=== PATIENT | male | born 1970 | race Caucasian/White ===

== ENCOUNTER 2016-11-08 21:03 | Emergency (ER) | payer MEDICARE ==
--- NOTE | ~2016-11-08 | CR72 ---
[facility] A Service [facility] RADIOLOGY TEXT RESULTS PATIENT: JENNYFER SALCIDO LOCATION: SED : 68 UNIT #: [id number] AGE: [address]: Nelson Dominguez MD SEX: M ORDER DR: [id number] [place] [id number] E MR#: [id number] Acc #: [id number] NAME: JENNYFER SALCIDO : 1970 SEX: M STUDY DATE/TIME: 11/08/2016 21:05 UNIT: SED ROOM: STUDY DESCRIPTION: CR Chest Single View Portable Attending Physician: Nelson Dominguez M.D. Ordering Physician: Nelson Dominguez M.D. Primary Care Physician: No Primary Care Physician MEDICAL IMAGING REPORT This report is preliminary unless electronic signature is present. EXAM Chest x-ray, single-view portable HISTORY Chest pain radiating into left arm. Short of air for 2 days. History of anxiety and panic attacks. Cardiac catheterization. COMMENT Single frontal portable view of the chest timed 21:05. 11/08/2016 reviewed. Comparison 03/13/2015. FINDINGS Heart size is normal. Some asymmetry in the appearance of the lungs is probably related to positioning and technique factors. No convincing evidence for acute-appearing parenchymal infiltrate acute congestive failure, pleural effusion or pneumothorax. IMPRESSION Allowing for positioning, no active disease. Dictated by... Amalia Anand M.D. THIS IS AN ELECTRONICALLY VERIFIED REPORT Amalia Anand M.D. at 11/08/2016 11:09 PM ENDY/moni TD: 11/08/2016 22:30 JOB #: [id number] [facility] A Service [facility] RADIOLOGY TEXT RESULTS PATIENT: JENNYFER SALCIDO LOCATION: SED : 68 UNIT #: [id number] AGE: [address]: Nelson Dominguez MD SEX: M ORDER DR: MEDICAL IMAGING REPORT Page 1 of 1
--- NOTE | ~2016-11-08 | EKG ---
PATIENT: JENNYFER SALCIDO UNIT #: [id number] Ventricular Rate: 93 BPM Atrial Rate: 93 BPM P-R Interval: 162 ms QRS Duration: 100 ms Q-T Interval: 332 ms QTC Calculation(Bezet): 412 ms P [place]: 64 degrees Calculated R [place]: 32 degrees Calculated T [place]: 60 degrees Diagnosis Line: Normal sinus rhythm Diagnosis Line: Incomplete right bundle branch block Diagnosis Line: Borderline ECG Diagnosis Line: When compared with ECG of 13-MAR-2015 19:04, Diagnosis Line: Fusion complexes are no longer Present Diagnosis Line: Confirmed by ISMA BARLOW MD ([id number]) on Diagnosis Line: 11/11/2016 12:03:20 PM INTERPRETING MD: YEN ALANIS
[~2016-11-08 21:03] MED LIST: ACETAMINOPHEN PO; ALBUTEROL17 G1 IH; ALBUTEROL17 GM INH; ALPRAZOLAM; ALPRAZOLAM PO; AMBIEN PO; ASPIRIN PO; ASPIRIN81 M1; ASPIRIN81 M1 PO; BENZONATATE PO; BP MED; CAPOZIDE PO; CHANTEX PO; CIPRO PO; COLACE PO; DICLOFENAC PO; DOCUSATE SODIU100 MG PO; FIORICET 50-321 EACH PO; FLAGYL PO; FLEXERIL PO; FLORINEF ACETA0.1 MG; FLORINEF ACETA0.1 MG PO; HCTZ PO; IBUPROFEN800 MG PO; KEFLEX250 M1 PO; KEPPRA100 MG/ML PO; KEPPRA500 M1; KEPPRA500 M1 PO; KEPPRA500 MG PO; KETOPROFEN PO; MAALOX SUSPENSI30 ML PO; MILK OF MAGNESIA PO; NAPROSYN500 MG PO; NEXIUM; NEXIUM PO; NORCO 5/325 TAB1 TAB PO; OMEPRAZOLE40 M1 PO; PAXIL; PAXIL PO; PAXIL40 MG PO; PERCOCET 10/3251 TAB PO; PERCOCET10 PO; PERCOCET5/325 PO; PRILOSEC PO; PRILOSEC20 MG PO; PROAIR HFA8.5 GM IH; SIMVASTATIN20 MG PO; SYMBICORT INH; SYNTHROID25 MCG PO; TRAMADOL HCL50 M1 PO; TYLENOL #3 PO; VICODIN 5/500 T1 TAB PO; VOLTAREN50 MG PO; XANAX2 MG PO; ZANTAC PO; ZITHROMAX PO; ZITHROMAX1 G/PKT PO; ZYRTEC; [UNRECOGNIZED DRUG - REMARK]
[2016-11-08 21:14] LABS: BASOPHIL# 0.1 X10e3 (0-0.3); BASOPHIL% 1.5 % (0-2.5); EOSINOPHIL# 0.7 X10e3 (0-0.7); EOSINOPHIL% 10.1 % (0.0-7.0); HEMATOCRIT 43.2 % (38.0-50.0); LYMPHOCYTE# 2.2 X10e3 (1.0-3.5); LYMPHOCYTE% 31.2 % (17.0-45.0); MEAN CELL VOLUME 95.7 FL (83-96); MEAN CORPUSCULAR HEMOGLOBIN 33.1 PG (28-34); MEAN CORPUSCULAR HGB CONC 34.6 g/dL (30-36); MEAN PLATELET VOLUME 9.7 FL (6.5-11.5); MONOCYTE# 0.6 X10e3 (0-1.0); MONOCYTE% 9.2 % (3.0-12.0); NEUTROPHIL# 3.4 X10e3 (1.5-7.1); PLATELET COUNT 198 X10e3 (140-420); RED BLOOD COUNT 4.52 X10e (3.90-5.60); RED CELL DISTRIBUTION WIDTH 13.9 % (11.0-15.5)
[2016-11-08 21:17] LABS: DIFF IND NO
[2016-11-08 21:21] LABS: INR 1.1; PROTHROMBIN TIME (PATIENT) 12.3 SECONDS (9.5-12.4)
[2016-11-08 21:28] LABS: PARTIAL THROMBOPLASTIN TIME 28.4 SECONDS (25.6-38.1)
[2016-11-08 21:30] LABS: ALBUMIN SERUM 4.5 g/dL (3.5-5.0); BILIRUBIN, DIRECT 0.2 mg/dL (0.0-0.2); BILIRUBIN,INDIRECT 0.8 mg/dL (0.0-0.9); BUN/CREATININE RATIO 7.77; CALCIUM SERUM 9.4 mg/dL (8.4-10.2); CREATININE SERUM 0.9 mg/dL (0.6-1.4); GLOM FILT RATE Estimated 101.4 mL/min (>60); POTASSIUM 5.2 mmol/L (3.5-5.1); PROTEIN TOTAL SERUM 7.3 g/dL (6.0-8.3)
[2016-11-08 21:31] LABS: POC - CKMB 4.8 ng/mL (0.0-7.9); POC - TROPONIN <0.05 ng/mL (<=0.05)
== END 2016-11-08 22:48 | disposition home or self-care (01) ==
LOC: SED 21:03
PROVIDERS: Emergency Medicine
DX: R07.9 Chest pain, unspecified (principal); F41.9 Anxiety disorder, unspecified; F17.200 Nicotine dependence, unspecified, uncomplicated
CPT/HCPCS: 36415; 71010; 80048; 80076; 82553; 84484; 85025; 85610; 85730; 93005; 96374; 99283; J2060

== ENCOUNTER 2016-11-13 12:14 | Emergency (ER) | payer MEDICARE ==
--- NOTE | ~2016-11-13 | CR72 ---
[facility]. [facility] A Service of [facility] RADIOLOGY TEXT RESULTS PATIENT: JENNYFER SALCIDO LOCATION: SED : 68 UNIT #: [id number] AGE: [address]: Adrien Fuller MD SEX: M ORDER DR: [id number] [place] [id number] E MR#: [id number] Acc #: [id number] NAME: JENNYFER SALCIDO : 1970 SEX: M STUDY DATE/TIME: 11/13/2016 12:37 UNIT: SED ROOM: STUDY DESCRIPTION: CR Chest Single View Portable Attending Physician: Adrien Fuller M.D. Ordering Physician: Adrien Fuller M.D. Primary Care Physician: Primary Care Physician No MEDICAL IMAGING REPORT This report is preliminary unless electronic signature is present. EXAM Chest portable 11/13/2016 1237 hours HISTORY 46-year-old man complaining of left chest pain for 4 days with increasing pain with inspiration. COMPARISON 11/08/2016. FINDINGS Portable upright chest demonstrates normal cardiac, mediastinal and hilar contours. The lungs are well expanded and clear. There is no pleural effusion, pneumothorax or rib lesion seen. IMPRESSION No acute cardiopulmonary findings. No change from 11/08/2016. Dictated by... Klaudia Dougherty M.D. THIS IS AN ELECTRONICALLY VERIFIED REPORT Klaudia Dougherty M.D. at 11/13/2016 2:31 PM EDURADO/julianna TD: 11/13/2016 14:06 JOB #: [id number] MEDICAL IMAGING REPORT Page 1 of 1
--- NOTE | ~2016-11-13 | EKG ---
PATIENT: JENNYFER SALCIDO UNIT #: [id number] Ventricular Rate: 73 BPM Atrial Rate: 73 BPM P-R Interval: 168 ms QRS Duration: 90 ms Q-T Interval: 366 ms QTC Calculation(Bezet): 403 ms P [place]: 67 degrees Calculated R [place]: 1 degrees Calculated T [place]: 49 degrees Diagnosis Line: Normal sinus rhythm Diagnosis Line: Normal ECG Diagnosis Line: When compared with ECG of 08-NOV-2016 20:22, Diagnosis Line: No significant change was found Diagnosis Line: Confirmed by JODY KENDALL MD ([id number]) on 11/23/2016 Diagnosis Line: 11:49:07 AM INTERPRETING MD: FAIZA ALANIS
[2016-11-13 12:37] LABS: POC - CKMB 1.6 ng/mL (0.0-7.9)
[2016-11-13 12:38] LABS: POC - TROPONIN <0.05 ng/mL (<=0.05)
[2016-11-13 12:42] LABS: INR 1.1; PROTHROMBIN TIME (PATIENT) 12.4 SECONDS (9.5-12.4)
[2016-11-13 12:45] LABS: AMPHETAMINE NEG (NEG); BARBITURATES NEG (NEG); BENZODIAZEPINES NEG (NEG); COCAINE NEG (NEG); MARIJUANA POS (NEG); OPIATES NEG (NEG); TRICYCLIC ANTIDEPRESSANTS NEG (NEG); U METHADONE NEG (NEG)
[2016-11-13 12:49] LABS: PARTIAL THROMBOPLASTIN TIME 28.5 SECONDS (25.6-38.1)
[2016-11-13 12:50] LABS: BUN/CREATININE RATIO 6.25; CALCIUM SERUM 8.9 mg/dL (8.4-10.2); CREATININE SERUM 0.8 mg/dL (0.6-1.4); GLOM FILT RATE Estimated 106.4 mL/min (>60); POTASSIUM 4.6 mmol/L (3.5-5.1)
== END 2016-11-13 13:30 | disposition home or self-care (01) ==
LOC: SED 12:14
PROVIDERS: Emergency Medicine
DX: R09.1 Pleurisy (principal); J40 Bronchitis, not specified as acute or chronic; F41.9 Anxiety disorder, unspecified; F17.210 Nicotine dependence, cigarettes, uncomplicated; Z88.8 Allergy status to other drugs, medicaments and biological substances; Z79.899 Other long term (current) drug therapy
CPT/HCPCS: 36415; 71010; 80048; 80307; 82553; 84484; 85610; 85730; 93005; 94640; 96361; 96374; 99284; J1885